=== PATIENT | male | born 1960 | race Caucasian/White ===

== ENCOUNTER 2018-12-01 10:41 | Day surgery (SDC) | payer MEDICARE ==
[~2018-12-01] VITALS: Ht 188 cm; Wt 113.5 kg
[2018-12-01] VITALS (9 sets, daily range): BP systolic 116–161; BP diastolic 70–92
[2018-12-01] MEDS ORDERED: ASPI-1265 PO (11:04)
[2018-12-01] MEDS ORDERED: CITA40TA11 PO (11:04)
[2018-12-01] MEDS ORDERED: SIMV20TA5 PO (11:04)
[2018-12-01] MEDS ORDERED: normal saline 1,000 ML IV SCH (11:10)
[2018-12-01] MEDS ORDERED: diphenhydrAMINE 25mg capsule PO PRN (11:10)
[2018-12-01 11:19] LABS: BASOPHILS # (AUTO) 0.1 X10'3 (0-0.2); BASOPHILS % (AUTO) 0.8 % (0-1); EOSINOPHILS # (AUTO) 0.3 X10'3 (0-0.9); EOSINOPHILS % (AUTO) 4.4 % (0-6); HEMATOCRIT 41.8 % (42.0-52.0); HEMOGLOBIN 14.3 g/dl (14.0-17.9); LYMPHOCYTES # (AUTO) 2.8 X10'3 (1.1-4.8); MEAN CORPUSCULAR HEMOGLOBIN 32.2 PG (27.0-31.0); MEAN CORPUSCULAR HGB CONC 34.2 g/dL (33.0-36.5); MEAN PLATELET VOLUME 9.9 FL (7.4-10.4); MONOCYTES # (AUTO) 0.5 X10'3 (0-0.9); MONOCYTES % (AUTO) 7.6 % (2-12); NEUTROPHILS # (AUTO) 3.1 X10'3 (1.8-7.7); NEUTROPHILS % (AUTO) 46.2 % (42-75); PLATELET COUNT 145 X10'3 (140-440); RED BLOOD COUNT 4.45 X10'6 (4.70-6.10); RED CELL DISTRIBUTION WIDTH 13.6 % (11.5-14.5); WHITE BLOOD COUNT 6.8 X10'3 (4.5-11.0)
[2018-12-01 11:26] LABS: ALBUMIN 3.4 G/DL (3.4-5.0); ANION GAP 9 (8-16); BLOOD UREA NITROGEN 6 MG/DL (7-18); BUN/CREATININE RATIO 7.1 (5.4-32.0); CALCIUM 8.3 MG/DL (8.5-10.1); CHLORIDE 107 MMOL/L (99-107); CREATININE 0.85 MG/DL (0.60-1.10); GLUCOSE 181 MG/DL (70-104); MAGNESIUM 1.8 MG/DL (1.5-2.4); POTASSIUM 3.9 MMOL/L (3.5-5.1); SODIUM 141 MMOL/L (135-145); TOTAL CARBON DIOXIDE 25.3 MMOL/L (24-32); eGFR > 90 ML/MIN
[2018-12-01] MEDS ORDERED: fentaNYL/PF 50MCG/1 ML 2ML syringe ONE (12:08)
[2018-12-01] MEDS ORDERED: midazolam 2 mg/2 ml injection ONE ×3 (12:08→12:54)
[2018-12-01] MEDS ORDERED: iohexol 350MG/ML 100ml bottle IV ONE ×2 (12:09→13:13)
[2018-12-01] MEDS ORDERED: LIDOcaine 1% (10mg/ml)w/preservative injection 20ml MDV ONE (12:09)
[2018-12-01] MEDS ORDERED: iohexol 350 MG/ML 50ML vial IV ONE (12:09)
[2018-12-01] MEDS ORDERED: adenosine 90 MG/30ml kit =/or below 120kg Cath Lab IV ONE (13:05)
[2018-12-01] MEDS ORDERED: heparin 1,000unit/ml 10ml vial 10 ML ONE (13:15)
[2018-12-01] MEDS ORDERED: clopidogrel 300mg tablet ONE (13:29)
== END 2018-12-01 17:00 | disposition home or self-care (01) ==
LOC: SSTAY O 10:41
PROVIDERS: ATTEND Internal Medicine Cardiovascular Disease
DX: I25.10 Atherosclerotic heart disease of native coronary artery without angina pectoris (principal); E78.5 Hyperlipidemia, unspecified; Z95.1 Presence of aortocoronary bypass graft; Z87.891 Personal history of nicotine dependence; Z79.899 Other long term (current) drug therapy; Z79.82 Long term (current) use of aspirin; Z98.890 Other specified postprocedural states; Z82.49 Family history of ischemic heart disease and other diseases of the circulatory system; Z83.3 Family history of diabetes mellitus
CPT/HCPCS: 36415; 80048; 83735; 85025; 85610; 93005; 93459; 99152; 99153; C1725; C1760; C1769; C1874; C1894; C9600; J0153; J1644; J2001; J2250; J3010; J7030; Q0163; Q9967; 93458; A4620; A6258